=== PATIENT | female | born 1975 | race American Indian/Alaskan Native ===

== ENCOUNTER 2020-08-24 13:15 | Emergency (ER) | payer SELFPAY ==
[2020-08-24 13:37] VITALS: BP 116/72
--- NOTE | 2020-08-24 17:43 | Emergency Department Report ---
ED General Adult HPI - General Chief complaint: Medical Clearance Stated complaint: FLUID LEAKAGE Time Seen by Provider: 08/24/20 16:37 Source: patient Mode of arrival: Ambulatory Limitations: No Limitations - History of Present Illness Initial comments: 44-year-old -[place] female patient presents with complaints of right- sided headache x3 months. Patient states that she feels like there was fluid in her head that is leaking down her neck and her back and into her arms and chest. She states that she is currently seeing a chiropractor for scoliosis and that when she informed him about her symptoms, he prescribed her in anti-inflammatory muscle relaxer. She states this anti-inflammatory muscle relaxer loosen her muscles and has now calls her teeth to shift backwards into her mouth and her right eyeball to be pulled back into her face. She denies any head injury, vision changes, numbness/tingling/weakness in her limbs, confusion, memory loss, or difficulty with speech/ambulation. She rates her current headache as a 4/10 in severity. Patient asking" are you are going to remove the fluid from my head" Severity scale (0 -10): 4 - Related Data Previous Rx's Medication Instructions Recorded Last Taken Type Butalb/Acetamin/Caff 50-325-40 1 tab PO Q8HR PRN #10 tablet 08/24/20 Unknown Rx [Fioricet 50-325-40] Allergies Allergy/AdvReac Type Severity Reaction Status Date / Time acetaminophen Allergy Swelling Verified 08/24/20 13:32 [From Goody's Headache Powder] aspirin Allergy Swelling Verified 08/24/20 13:32 [From Goody's Headache Powder] caffeine Allergy Swelling Verified 08/24/20 13:32 [From Goody's Headache Powder] potassium Allergy Swelling Verified 08/24/20 13:32 [From Goody's Headache Powder] BC POWDER Allergy Swelling Uncoded 08/24/20 13:32 ED Review of Systems ROS: Stated complaint: FLUID LEAKAGE Other details as noted in HPI Constitutional: denies: chills, diaphoresis, fever, malaise, weakness Eyes: denies: eye pain, eye discharge, vision change ENT: denies: throat pain Respiratory: denies: cough, shortness of breath Cardiovascular: denies: chest pain, palpitations, edema, syncope Gastrointestinal: denies: abdominal pain, nausea, vomiting Musculoskeletal: denies: arthralgia Skin: denies: rash, lesions, change in color Neurological: headache. denies: weakness, numbness, paresthesias, confusion, abnormal gait Psychiatric: denies: auditory hallucinations, visual hallucinations, homicidal thoughts, suicidal thoughts Hematological/Lymphatic: denies: swollen glands ED Past Medical Hx - Past Medical History Additional medical history: ROTATOR CUFF INJURY - Surgical History Past Surgical History?: No - Medications Home Medications: Home Medications Medication Instructions Recorded Confirmed Last Taken Type Butalb/Acetamin/Caff 50-325-40 1 tab PO Q8HR PRN #10 tablet 08/24/20 Unknown Rx [Fioricet 50-325-40] ED Physical Exam - General Limitations: No Limitations General appearance: alert, in no apparent distress - Head Head exam: Present: atraumatic, normocephalic - Eye Eye exam: Present: normal appearance, PERRL, EOMI. Absent: scleral icterus - ENT ENT exam: Present: normal orophraynx, mucous membranes moist - Neck Neck exam: Present: normal inspection, full ROM. Absent: tenderness - Respiratory Respiratory exam: Present: normal lung sounds bilaterally. Absent: respiratory distress - Cardiovascular Cardiovascular Exam: Present: regular rate, normal rhythm. Absent: systolic murmur, diastolic murmur, rubs, gallop - Extremities Exam Extremities exam: Present: normal inspection, full ROM - Back Exam Back exam: Present: full ROM - Neurological Exam Neurological exam: Present: alert, oriented X3, CN II-XII intact, normal gait. Absent: motor sensory deficit - Expanded Neurological Exam Expanded Cerebellar function: Finger to Nose: Normal, Heel to [place]: Normal, Romberg: Normal Sensory exam: Upper Extremity Light Touch: Normal, Lower Extremity Light Touch: Normal Motor strength exam: RUE: 5, LUE: 5, RLE: 5, LLE: 5 Best Eye Response (Chaz): (4) open spontaneously Best Motor Response (Chaz): (6) obeys commands Best Verbal Response ([place]): (5) oriented [place] Total: 15 - Psychiatric Psychiatric exam: Present: normal affect, anxious - Skin Skin exam: Present: warm, dry, intact, normal color. Absent: rash, cyanosis, diaphoretic, erythema ED Course Vital Signs 08/24/20 13:37 Temperature 99.2 F Pulse Rate 69 Respiratory 18 Rate Blood Pressure 116/72 [Right] O2 Sat by Pulse 99 Oximetry ED Medical Decision Making - Lab Data Result diagrams: 08/24/20 17:53 08/24/20 17:53 Lab Results 08/24/20 08/24/20 Range/Units 17:53 17:53 WBC 6.5 (4.5-11.0) K/mm3 RBC 3.99 (3.65-5.03) M/mm3 Hgb 11.9 (10.1-14.3) gm/dl Hct 36.1 (30.3-42.9) % MCV 91 (79-97) fl MCH 30 (28-32) pg MCHC 33 (30-34) % RDW 17.0 H (13.2-15.2) % Plt Count 191 (140-440) K/mm3 Lymph % (Auto) 43.6 H (13.4-35.0) % [place] % (Auto) 10.7 H (0.0-7.3) % Eos % (Auto) 1.3 (0.0-4.3) % Baso % (Auto) 0.3 (0.0-1.8) % Lymph # (Auto) 2.8 (1.2-5.4) K/mm3 [place] # (Auto) 0.7 (0.0-0.8) K/mm3 Eos # (Auto) 0.1 (0.0-0.4) K/mm3 Baso # (Auto) 0.0 (0.0-0.1) K/mm3 Seg Neutrophils % 44.1 (40.0-70.0) % Seg Neutrophils # 2.8 (1.8-7.7) K/mm3 Sodium 138 (137-145) mmol/L Potassium 4.1 (3.6-5.0) mmol/L Chloride 103.6 (98-107) mmol/L Carbon Dioxide 21 L (22-30) mmol/L Anion Gap 18 mmol/L BUN 9 (7-17) mg/dL Creatinine 0.7 (0.6-1.2) mg/dL Estimated GFR > 60 ml/min BUN/Creatinine Ratio 13 % Glucose 98 (65-100) mg/dL Calcium 9.8 (8.4-10.2) mg/dL Total Bilirubin 0.20 (0.1-1.2) mg/dL AST 45 H (5-40) units/L ALT 10 (7-56) units/L Alkaline Phosphatase 43 (35-129) units/L Total Protein 8.1 (6.3-8.2) g/dL Albumin 4.5 (3.9-5) g/dL Albumin/Globulin Ratio 1.3 % - Radiology Data Radiology results: report reviewed Procedure(s): CT head/brain wo con Accession Number(s): [id number] cc: MICHAEL BEYER CT BRAIN: 08/24/2020 INDICATION / CLINICAL INFORMATION: Right-sided headache.. COMPARISON: None available. FINDINGS: BRAIN/INTRACRANIAL STRUCTURES: Unenhanced CT images of the brain demonstrate no evidence of acute intracranial abnormality. Ventricles and sulci are normal in size and shape for a patient of this age. There is no evidence of acute ischemic injury, hemorrhage, or mass. There are no abnormal extra- axial fluid collections. EXTRACRANIAL STRUCTURES: There is been prior right ocular surgery. Otherwise unremarkable. IMPRESSION: No acute abnormality - Medical Decision Making 44-year-old -[place] female patient presents with complaints of right- sided headache x3 months. Patient states that she feels like there was fluid in her head that is leaking down her neck and her back and into her arms and chest. She states that she is currently seeing a chiropractor for scoliosis and that when she informed him about her symptoms, he prescribed her in anti- inflammatory muscle relaxer. She states this anti-inflammatory muscle relaxer loosened her muscles and has now calls her teeth to shift backwards into her mouth and her right eyeball to be pulled back into her face. She denies any head injury, vision changes, numbness/tingling/weakness in her limbs, confusion, memory loss, or difficulty with speech/ambulation. She rates her current headache as a 4/10 in severity. Patient asking" are you are going to remove the fluid from my head" On exam, patient is neurologically intact. No facial deformities or drooping of the face is noted. CT head is normal. CBC and CMP are normal. Patient appears very anxious and tearful and given history, a mental health examination was ordered. I spoke with [facility] [place]-she reports patient does not meet inpatient criteria and she believes she is stable for discharge home from my mental health stance. She has provided the patient with outpatient resources. Patient instructed to follow-up with primary care and neurology for her headaches. Her vitals are normal, she is in no acute distress, she is stable for discharge home. Strict return precautions were discussed in detail with patient who verbalizes understanding. Critical care attestation.: If time is entered above; I have spent that time in minutes in the direct care of this critically ill patient, excluding procedure time. ED Disposition Clinical Impression: Chronic headache Qualifiers: Headache type: unspecified Intractability: not intractable Qualified Code(s): R51.9 - Headache, unspecified Disposition: DC- TO HOME OR SELFCARE Is pt being admited?: No Condition: Stable Instructions: Migraine Headache (ED) Prescriptions: Butalb/Acetamin/Caff 50-325-40 [Fioricet 50-325-40] 1 tab PO Q8HR PRN #10 tablet PRN Reason: Headache Referrals: JONATHAN ARROYO MD [Staff Physician] - 2-3 Days PRIMARY CAREMD [Primary Care Provider] - 3-5 Days
[2020-08-24 18:15] LABS: Basophils % (Auto) 0.3 % (0.0-1.8); Eosinophils # (Auto) 0.1 K/mm3 (0.0-0.4); Eosinophils % (Auto) 1.3 % (0.0-4.3); Hematocrit 36.1 % (30.3-42.9); Hemoglobin 11.9 gm/dl (10.1-14.3); Lymphocytes # (Auto) 2.8 K/mm3 (1.2-5.4); Lymphocytes % (Auto) 43.6 % (13.4-35.0); Mean Corpuscular HGB Conc 33 % (30-34); Mean Corpuscular Volume 91 fl (79-97); Monocytes # (Auto) 0.7 K/mm3 (0.0-0.8); Monocytes % (Auto) 10.7 % (0.0-7.3); Platelet Count 191 K/mm3 (140-440); Red Blood Count 3.99 M/mm3 (3.65-5.03)
--- NOTE | 2020-08-24 18:17 | Cat Scan Report ---
CT BRAIN: 08/24/2020 INDICATION / CLINICAL INFORMATION: Right-sided headache.. COMPARISON: None available. FINDINGS: BRAIN/INTRACRANIAL STRUCTURES: Unenhanced CT images of the brain demonstrate no evidence of acute int racranial abnormality. Ventricles and sulci are normal in size and shape for a patient of this age. There is no evidence of acute ischemic injury, hemorrhage, or mass. There are no abnormal extra-axial fluid collections. EXTRACRANIAL STRUCTURES: There is been prior right ocular surgery. Otherwise unremarkable. IMPRESSION: No acute abnormality All CT scans at this location are performed using dose reduction to ALARA by means of automated expos ure control. Signer Name: Afshin Kim MD Signed: 08/24/2020 6:13 PM Workstation Name: [id number]
[2020-08-24 18:32] LABS: Alanine Aminotransferase 10 units/L (7-56); Albumin 4.5 g/dL (3.9-5); Blood Urea Nitrogen 9 mg/dL (7-17); Calcium 9.8 mg/dL (8.4-10.2); Hemolysis Index 49
[2020-08-24 18:35] LABS: BUN/Creatinine Ratio 13
== END 2020-08-24 20:41 | disposition home or self-care (01) ==
LOC: ED 13:15
DX: R51.9 Headache, unspecified (principal); Z88.6 Allergy status to analgesic agent; Z88.8 Allergy status to other drugs, medicaments and biological substances; Z79.899 Other long term (current) drug therapy
CPT/HCPCS: 36415; 70450; 80053; 85025